=== PATIENT | female | born 2000 | race Caucasian/White ===

== ENCOUNTER 2023-12-29 22:23 | Emergency (ER) | payer MEDICAID, SELFPAY ==
[2023-12-29 22:25] VITALS: BP 124/79; PULSE 110; RESP 15; TEMP 36.5; O2SAT 99; BMI 25.0
[2023-12-29 22:59] LABS: Rapid Strep A Test Negative (Negative)
[2023-12-29] MEDS: lidocaine 2% viscous 15 mL UDC MUCOUS MEM (23:05)
--- NOTE | 2023-12-29 23:07 | W.ED.BURNSMK ---
Documented by User: ANEESH Ramos 12/29/23 23:13 HPI - Burn/Smoke Inhalation General: Chief complaint: Burn/Smoke Inhalation Stated complaint: throat pain Time Seen by Provider: 12/29/23 22:25 Source: patient Mode of arrival: ambulatory Limitations: no limitations History of Present Illness: Patient is a 23-year-old female presents the emergency department complaining of sore throat onset 2 days. Patient reports history of strep throat, states this feels similar. She notes she was hanging around a friend this weekend in [place], and states that she was having similar symptoms and subsequently was tested for strep throat. Patient states that hurts to swallow and she has a decreased appetite due to the pain. She denies fever, cough, chills, nausea/vomiting, or any other symptoms. Unrelated, she notes a burn to her right pinky finger, which she states is a freezer burn. She says that it is less painful, however she wants to know if she could do to treat it. Associated symptoms: Deny chest pain, fever(s), headache(s), nausea, neck pain or vomiting Review of Systems General: Reports: 10 or more systems reviewed and unremarkable except in HPI and below Const: Reports: change in appetite; Denies: fever(s), chills, fatigue, malaise or night sweats ENMT: Reports: throat pain; Denies: ear or mastoid pain, nasal discharge, nasal congestion or sinus pain Card: Denies: chest pain, palpitations or lightheadedness Resp: Denies: dyspnea, productive cough or wheezing GI: Denies: abdominal pain, nausea, vomiting or diarrhea : Denies: flank pain Musc: Denies: neck pain, back pain or joint pain Skin/Breast: Reports: new lesions (Burn to right fifth finger); Denies: rash Neuro: Denies: headache(s) or dizziness Physical Exam Const: COMMON NORMALS: no acute distress, average body habitus, patient oriented x3, no limitations, healthy appearing, alert and well nourished GENERAL APPEARANCE: cooperative and comfortable ORIENTATION/CONSCIOUSNESS: Yes awake HENMT: COMMON NORMALS: normocephalic, atraumatic, external ears normal, EAC's normal, TM's normal bilaterally and Normal external nose present HEAD & SCALP: normocephalic and atraumatic FACE & SINUS: normal facial exam and sinuses nontender NOSE: Normal external nose present, Normal nares present and No nasal polyps present EXTERNAL EAR: Yes external ears normal EXTERNAL AUDITORY CANAL: EAC's normal TYMPANIC MEMBRANE: TM's normal bilaterally MOUTH: Normal oral and palatal mucosa present THROAT: uvula midline and posterior oropharynx abnormal edema, erythema and exudates Eye: COMMON NORMALS: EOMs intact bilaterally and conjunctivae normal CONJUNCTIVA: Yes conjunctivae normal Neck/C-Spine: COMMON NORMALS: full ROM and no lymphadenopathy Resp: COMMON NORMALS: normal respiratory effort, No retractions, No use of accessory muscles and clear to auscultation bilaterally AUSCULTATION: clear to auscultation bilaterally Cardio: COMMON NORMALS: regular rate, regular rhythm, S1 normal heart sound present and S2 normal heart sound present RATE: regular rate RHYTHM: regular rhythm HEART SOUNDS: S1 normal heart sound present and S2 normal heart sound present Extremity: COMMON NORMALS: normal to inspection and full ROM Neuro: COMMON NORMALS: patient oriented x3, moves all extremities, no focal motor deficits and no sensory deficits noted SENSORIUM/ORIENTATION: Yes alert Psych: COMMON NORMALS: mental status grossly normal Skin: NARRATIVE SKIN EXAM: Several second degree partial-thickness blisters noted to the medial aspect of the right pinky. No surrounding erythema or drainage. Course Vital Signs: Vital signs: Vital Signs Temperature 97.7 F 12/29/23 22:25 Pulse Rate 110 H 12/29/23 22:25 Respiratory Rate 15 12/29/23 22:25 Blood Pressure 124/79 12/29/23 22:25 Pulse Oximetry 99 12/29/23 22:25 Oxygen Delivery Me thod Room Air 12/29/23 22:25 MDM - Burn/Smoke Inhalation Medical Decision Making Patient seen and evaluated in the emergency department today for 2 days of sore throat as well as an unrelated burn suffered a few days ago. For her sore throat, she notes exposure to a potential strep throat infection, and notes that her condition feels similar to prior episodes. Examination remarkable for diffuse erythema of the posterior oropharynx with exudates. Rapid strep is negative, however due to the exposure and clinical picture of her posterior oropharynx, I will treat her with amoxicillin empirically. Strep swab will be cultured. I will also give her bacitracin for her allison and instructed her to keep these clean with soap and water, as well as dry. Return precautions given. Patient agrees with plan. School note will be given at the patient's request. Lab Data Laboratory Results Group A Strep Rapid Negative (Negative) 12/29/23 22:31 No radiology studies performed this visit Discharge Plan Discharge Patient Disposition: Home Clinical Impression: Acute streptococcal pharyngitis Burn of finger Qualifiers: Encounter type: initial encounter Laterality: right Burn degree: partial thickness (2nd degree) Qualified Code(s): T23.221A - Burn of second degree of single right finger (nail) except thumb, initial encounter Condition: Stable Prescriptions: New amoxicillin 500 mg tablet 1,000 mg PO BID 10 Days Qty: 40 0RF bacitracin 500 unit/gram ointment 1 applic topical BID Qty: 1022.4 0RF ondansetron 4 mg tablet,disintegrating 4 mg PO TID PRN (Reason: nausea and vomiting) Qty: 60 0RF Discharge Orders: Discharge ED (Routine); Ordered 12/29/23 Ordered By: Luis Eduardo Carvalho Referrals: Pricila Rosales DO [Primary Care Provider] - Discharge Diet: Usual diet Discharge Activity: Increase activity as tolerated Patient Instructions: Strep Throat (ED), Second-Degree Burn (ED) Activity Restrictions/Additional Instructions: Amoxicillin as prescribed. Contagion precautions. Tylenol for any fevers. Plenty fluids. Follow-up with your primary care provider. Return with any new or worsening symptoms. Apply bacitracin to burn as instructed. Clean burn with soap and water, keep dry. Stand Alone Forms: Work/School Release Coding Level of Care Code ED Research Laboratory Manager for [facility] Documented by User: Tariq Daniel DO 12/30/23 05:51 HPI - Burn/Smoke Inhalation General: Chief complaint: Burn/Smoke Inhalation Stated complaint: throat pain Time Seen by Provider: 12/29/23 22:25 Course Vital Signs: Vital signs: Vital Signs Temperature 97.7 F 12/29/23 22:25 Pulse Rate 110 H 12/29/23 22:25 Respiratory Rate 15 12/29/23 22:25 Blood Pressure 124/79 12/29/23 22:25 Pulse Oximetry 99 12/29/23 22:25 Oxygen Delivery Me thod Room Air 12/29/23 22:25 MDM - Burn/Smoke Inhalation Medical Decision Making Patient seen and evaluated in the emergency department today for 2 days of sore throat as well as an unrelated burn suffered a few days ago. For her sore throat, she notes exposure to a potential strep throat infection, and notes that her condition feels similar to prior episodes. Examination remarkable for diffuse erythema of the posterior oropharynx with exudates. Rapid strep is negative, however due to the exposure and clinical picture of her posterior oropharynx, I will treat her with amoxicillin empirically. Strep swab will be cultured. I will also give her bacitracin for her allison and instructed her to keep these clean with soap and water, as well as dry. Return precautions given. Patient agrees with plan. School note will be given at the patient's request. Chart reviewed Lab Data Laboratory Results Group A Strep Rapid Negative (Negative) 12/29/23 22:31 Discharge Plan Discharge Patient Disposition: Home Clinical Impression: Acute streptococcal pharyngitis Burn of finger Qualifiers: Encounter type: initial encounter Laterality: right Burn degree: partial thickness (2nd degree) Qualified Code(s): T23.221A - Burn of second degree of single right finger (nail) except thumb, initial encounter Condition: Stable Prescriptions: New amoxicillin 500 mg tablet 1,000 mg PO BID 10 Days Qty: 40 0RF bacitracin 500 unit/gram ointment 1 applic topical BID Qty: 1022.4 0RF ondansetron 4 mg tablet,disintegrating 4 mg PO TID PRN (Reason: nausea and vomiting) Qty: 60 0RF Discharge Orders: Discharge ED (Routine); Ordered 12/29/23 Ordered By: Luis Eduardo Carvalho Referrals: Pricila Rosales DO [Primary Care Provider] - Discharge Diet: Usual diet Discharge Activity: Increase activity as tolerated Patient Instructions: Strep Throat (ED), Second-Degree Burn (ED) Activity Restrictions/Additional Instructions: Amoxicillin as prescribed. Contagion precautions. Tylenol for any fevers. Plenty fluids. Follow-up with your primary care provider. Return with any new or worsening symptoms. Apply bacitracin to burn as instructed. Clean burn with soap and water, keep dry. Stand Alone Forms: Work/School Release Coding Level of Care Code ED Research Laboratory Manager for [facility]
[2023-12-29] MEDS: amoxicillin 500 mg Capsule PO (23:26)
== END 2023-12-29 23:32 | disposition home or self-care (01) ==
PROVIDERS: Emergency Provider Physician Assistant; PCP Family Medicine
DX: J02.0 Streptococcal pharyngitis (principal); T23.221A Burn of second degree of single right finger (nail) except thumb, initial encounter; X08.8XXA Exposure to other specified smoke, fire and flames, initial encounter
CPT/HCPCS: 87081; 87880; 99283

== ENCOUNTER 2024-01-01 21:58 | Emergency (ER) | payer MEDICAID, SELFPAY ==
[2024-01-01 21:59] VITALS: BP 120/82; PULSE 97; RESP 16; TEMP 36.6; O2SAT 98
--- NOTE | 2024-01-01 23:12 | ED_ITS ---
HPI - Recheck/Abnormal Lab/Rx General: Chief Complaint: Recheck/Abnormal Lab/Rx Stated Complaint: throat hurts tonsils swollen Time Seen by Provider: 01/01/24 22:55 History of Present Illness: 23-year-old female comes in today with p ersistent sore throat. Patient was seen 3 days ago and was diagnosed with strep pharyngitis. Review of the record noted that strep test was negative. Patient was placed on amoxicillin, bacitracin, and Zofran. Patient appears nontoxic. Patient appears in mild to moderate pain. Review of Systems General: Reports: 10 or more systems reviewed and unremarkable except in HPI and below ENMT: Reports: throat pain Physical Exam Const: COMMON NORMALS: alert HENMT: COMMON NORMALS: normocephalic HEAD & SCALP: normocephalic THROAT: posterior oropharynx abnormal erythema Neck/C-Spine: COMMON NORMALS: full ROM Resp: COMMON NORMALS: normal respiratory effort and clear to auscultation bilaterally AUSCULTATION: clear to auscultation bilaterally Cardio: COMMON NORMALS: regular rate RATE: regular rate Back/Pelvis: COMMON NORMALS: thoracic and lumbar spine normal to inspection Extremity: COMMON NORMALS: normal to inspection Neuro: SENSORIUM/ORIENTATION: Yes alert Skin: COMMON NORMALS: turgor normal GENERAL SKIN EXAM: turgor normal Course Vital Signs: Vital signs: Vital Signs Temperature 97.8 F 01/01/24 21:59 Pulse Rate 97 01/01/24 21:59 Respiratory Rate 16 01/01/24 21:59 Blood Pressure 120/82 01/01/24 21:59 Pulse Oximetry 98 01/01/24 21:59 Oxygen Delivery Me thod Room Air 01/01/24 21:59 MDM - Recheck/Abnormal Lab/Rx Medical Decision Making Patient presents with complaints of sore throat. On exam patient has erythema to posterior pharynx with some tonsillar enlargement. Patient also has some vesicular lesions to the posterior pharynx. Differential diagnosis includes strep pharyngitis, viral pharyngitis, HSV. Recommended treatment with viscous lidocaine and a dose of steroid to help with pain and discomfort. Encourage fluids rest and follow-up with primary care. Patient reported understanding agreed to plan. No radiology studies performed this visit Discharge Plan Discharge Patient Disposition: Home Clinical Impression: Pharyngitis due to Coxsackie virus Condition: Stable Prescriptions: New Lidocaine Viscous 2 % solution 5 ml mucous membrane Q3H PRN (Reason: pain) Qty: 100 0RF No Action amoxicillin 500 mg tablet 1,000 mg PO BID 10 Days Qty: 40 0RF bacitracin 500 unit/gram ointment 1 applic topical BID Qty: 1022.4 0RF ondansetron 4 mg tablet,disintegrating 4 mg PO TID PRN (Reason: nausea and vomiting) Qty: 60 0RF Discharge Orders: Discharge ED (Routine); Ordered 01/01/24 Ordered By: Phu Christian Referrals: Pricila Rosales DO [Primary Care Provider] - Patient Instructions: Pharyngitis (ED) Activity Restrictions/Additional Instructions: Drink frequent sips of fluid. Use lidocaine viscous as needed for sore throat. Continue with acetaminophen ibuprofen for further pain relief. Follow-up with primary care in 3 to 4 days for recheck. Return to ER for worsening symptoms such as inability to hold fluids down, fever greater than 100.4, no urine output within 8 hours. Coding Level of Care Code ED [employer] Librarian for [facility]
[2024-01-01] MEDS: dexamethasone 10 mg/mL INJ PO (23:24)
[2024-01-01] MEDS: lidocaine 2% viscous 15 mL UDC 5 ML MUCOUS MEM (23:24)
[2024-01-01 23:30] VITALS: PULSE 91; RESP 16; O2SAT 99
== END 2024-01-01 23:31 | disposition home or self-care (01) ==
PROVIDERS: Emergency Provider Nurse Practitioner Family; PCP Family Medicine
DX: B08.5 Enteroviral vesicular pharyngitis (principal)
CPT/HCPCS: 99283; J1100

== ENCOUNTER 2024-02-28 15:53 | Emergency (ER) | payer MEDICAID, SELFPAY ==
[2024-02-28 16:04] VITALS: BP 117/64; PULSE 103; RESP 17; TEMP 36.7; O2SAT 100; BMI 25.0
--- NOTE | 2024-02-28 16:39 | XRR_ITS ---
PROCEDURE INFORMATION: Exam: XR Chest Exam date and time: 02/28/2024 5:37 PM Age: 24 years old Clinical indication: Patient HX: Extremity numbness; Cardiac R/O TECHNIQUE: Imaging protocol: Radiologic exam of the chest. Views: 1 view. COMPARISON: No relevant prior studies available. FINDINGS: Lungs: Unremarkable. No consolidation. Pleural spaces: Unremarkable. No pleural effusion. No pneumothorax. Heart/Mediastinum: Unremarkable. No cardiomegaly. Bones/joints: Unremarkable. XR/XR chest 1V portable [id number] IMPRESSION: No acute findings.
--- NOTE | 2024-02-28 16:58 | ED_ITS ---
Documented by User: ANEESH Ramos 02/28/24 19:03 HPI - Extremity Problem General: Chief complaint: Extremity Problem,Nontraumatic Stated complaint: legs, feet numbness Time Seen by Provider: 02/28/24 16:31 Source: patient Mode of arrival: ambulatory Limitations: no limitations History of Present Illness: Patient is a 24-year-old female presenting to the emergency department complaining of bilateral ascending numbness of her lower extremities for the past couple weeks. She notes that prior to the symptom onset, she has started taking nitrous oxide. She notes she has continued to do this every day until today when the numbness extended past her knees bilaterally. She is denying any pain at this time though states it is nearly impossible to walk due to the weakness and numbness. She denies any pertinent medical history. She is not reporting any shortness of breath, headaches, nausea or vomiting, fevers, or other symptoms at this time. She notes she does not take medications for anything. Patient's boyfriend in the room states that he read up on nitrous oxide and believes that this is potentially causing her neuropathy. Complaint: other (Bilateral numbness to lower extremities) Onset (ago): week(s) Associated symptoms: Deny chest pain, fever(s) or rash Review of Systems General: Reports: 10 or more systems reviewed and unremarkable except in HPI and below Const: Denies: fever(s), chills or fatigue Eyes: Denies: change in vision ENMT: Denies: throat pain, ear or mastoid pain or nasal discharge Card: Denies: chest pain, palpitations, swelling of feet/ankles or lightheadedness Resp: Denies: dyspnea, productive cough or wheezing GI: Denies: abdominal pain, nausea, vomiting, diarrhea or constipation : Denies: flank pain, difficulty voiding, dysuria or urinary frequency Musc: Denies: neck pain, back pain or joint pain Skin/Breast: Denies: rash Neuro: Reports: numbness in extremities (BLE) and weakness in extremities (BLE); Denies: headache(s) Physical Exam Const: COMMON NORMALS: no acute distress, patient oriented x3 and no limitations GENERAL APPEARANCE: cooperative, comfortable and well developed ORIENTATION/CONSCIOUSNESS: Yes awake, Yes oriented to person, Yes oriented to place and Yes oriented to time HENMT: COMMON NORMALS: normocephalic, atraumatic and hearing grossly normal bilaterally HEAD & SCALP: normocephalic and atraumatic Eye: COMMON NORMALS: Equal, round and reactive pupils present, EOMs intact bilaterally and conjunctivae normal CONJUNCTIVA: Yes conjunctivae normal PUPIL: Yes Equal, round and reactive pupils present Neck/C-Spine: COMMON NORMALS: full ROM, supple and no JVD Resp: COMMON NORMALS: normal respiratory effort, No retractions, No use of accessory muscles and clear to auscultation bilaterally AUSCULTATION: clear to auscultation bilaterally Cardio: COMMON NORMALS: no JVD, regular rate, regular rhythm, No clicks present (Cardio), No murmurs present (Cardio) and No rub (Cardio) RATE: regular rate RHYTHM: regular rhythm Extremity: COMMON NORMALS: normal to inspection, full ROM and capillary refill normal Neuro: COMMON NORMALS: patient oriented x3, CN's II-XII intact bilaterally, moves all extremities, no focal motor deficits and no sensory deficits noted SENSORIUM/ORIENTATION: Yes oriented to person, Yes oriented to place and Yes oriented to time OTHER: Distal sensations intact bilaterally to lower extremities. Deep tendon reflexes also intact with patellar and Achilles manipulation. Able to move both extremities with 5/5 strength. No focal motor deficits. During examination she begins shaking her legs uncontrollably, which stopped spontaneously. Psych: COMMON NORMALS: mental status grossly normal and Normal thought process present THOUGHT PROCESS: Normal thought process present Skin: COMMON NORMALS: no rashes or lesions noted GENERAL SKIN EXAM: no rashes or lesions noted Course Vital Signs: Vital signs: Vital Signs Temperature 98.1 F 02/28/24 19:11 Pulse Rate 103 H 02/28/24 19:11 Respiratory Rate 17 02/28/24 19:11 Blood Pressure 117/64 02/28/24 19:11 Pulse Oximetry 100 02/28/24 19:11 Oxygen Delivery Me thod Room Air 02/28/24 16:04 MDM - Extremity (Nontraumatic) Medical Decision Making Patient left AGAINST MEDICAL ADVICE. Labs not drawn. Lab Data Radiology Impressions Chest X-Ray 02/28/24 16:39 IMPRESSION: No acute findings. Head CT 02/28/24 17:03 IMPRESSION: No acute intracranial abnormality. Laboratory Results Urine Color Yellow (Yellow) 02/28/24 17:25 Urine Appearance Cloudy (CLEAR) A 02/28/24 17:25 Urine pH 7 (5-7) 02/28/24 17:25 Ur Specific [place] 1.010 (1.005-1.030) 02/28/24 17:25 Urine Protein Neg (Negative) 02/28/24 17:25 Urine Glucose (UA) Norm (Normal) 02/28/24 17:25 Urine Ketones Negative (Negative) 02/28/24 17:25 Urine Blood Neg (Negative) 02/28/24 17:25 Urine Nitrate Negative (Negative) 02/28/24 17:25 Urine Bilirubin Neg (Negative) 02/28/24 17:25 Urine Urobilinogen Norm mg/dL (Negative) 02/28/24 17:25 Ur Leukocyte Esterase Negative (Negative) 02/28/24 17:25 Urine RBC None /hpf (0-2) 02/28/24 17:25 Urine WBC None /hpf (0-5) 02/28/24 17:25 Ur Squamous Epith Cells 0-4 /hpf (0-5) H 02/28/24 17:25 Amorphous Sediment 3+ /hpf 02/28/24 17:25 Urine Bacteria Trace /hpf (NONE) 02/28/24 17:25 Urine Opiates Screen Negative ng/mL (Negative) 02/28/24 17:25 Ur Barbiturates Screen Negative ng/mL (Negative) 02/28/24 17:25 Ur Phencyclidine Scrn Negative ng/mL (Negative) 02/28/24 17:25 Ur Amphetamines Screen Negative ng/mL (Negative) 02/28/24 17:25 U Benzodiazepines Scrn Negative ng/mL (Negative) 02/28/24 17:25 Urine Cocaine Screen Negative ng/mL (Negative) 02/28/24 17:25 U Marijuana (THC) Screen Positive ng/mL (Negative) H 02/28/24 17:25 All radiology interpretation(s) finalized by discharge Discharge Plan Discharge Patient Disposition: Left Against Medical Advice Clinical Impression: Left against medical advice Condition: Stable Prescriptions: No Action Lidocaine Viscous 2 % solution 5 ml mucous membrane Q3H PRN (Reason: pain) Qty: 100 0RF bacitracin 500 unit/gram ointment 1 applic topical BID Qty: 1022.4 0RF ondansetron 4 mg tablet,disintegrating 4 mg PO TID PRN (Reason: nausea and vomiting) Qty: 60 0RF Referrals: Pricila Rosales DO [Primary Care Provider] - Coding Level of Care Code ED Software Maintenance Engineer for [facility] Documented by User: Tariq Daniel DO 02/29/24 06:57 HPI - Extremity Problem General: Chief complaint: Extremity Problem,Nontraumatic Stated complaint: legs, feet numbness Time Seen by Provider: 02/28/24 16:31 Course Vital Signs: Vital signs: Vital Signs Temperature 98.1 F 02/28/24 19:11 Pulse Rate 103 H 02/28/24 19:11 Respiratory Rate 17 02/28/24 19:11 Blood Pressure 117/64 02/28/24 19:11 Pulse Oximetry 100 02/28/24 19:11 Oxygen Delivery Me thod Room Air 02/28/24 16:04 MDM - Extremity (Nontraumatic) Medical Decision Making Patient left AGAINST MEDICAL ADVICE. Labs not drawn. Chart reviewed Lab Data Radiology Impressions Chest X-Ray 02/28/24 16:39 IMPRESSION: No acute findings. Head CT 02/28/24 17:03 IMPRESSION: No acute intracranial abnormality. Laboratory Results Urine Color Yellow (Yellow) 02/28/24 17:25 Urine Appearance Cloudy (CLEAR) A 02/28/24 17:25 Urine pH 7 (5-7) 02/28/24 17:25 Ur Specific [place] 1.010 (1.005-1.030) 02/28/24 17:25 Urine Protein Neg (Negative) 02/28/24 17:25 Urine Glucose (UA) Norm (Normal) 02/28/24 17: Urine Ketones Negative (Negative) 02/28/24 17:25 Urine Blood Neg (Negative) 02/28/24 17:25 Urine Nitrate Negative (Negative) 02/28/24 17:25 Urine Bilirubin Neg (Negative) 02/28/24 17:25 Urine Urobilinogen Norm mg/dL (Negative) 02/28/24 17:25 Ur Leukocyte Esterase Negative (Negative) 02/28/24 17:25 Urine RBC None /hpf (0-2) 02/28/24 17:25 Urine WBC None /hpf (0-5) 02/28/24 17:25 Ur Squamous Epith Cells 0-4 /hpf (0-5) H 02/28/24 17:25 Amorphous Sediment 3+ /hpf 02/28/24 17:25 Urine Bacteria Trace /hpf (NONE) 02/28/24 17:25 Urine Opiates Screen Negative ng/mL (Negative) 02/28/24 17:25 Ur Barbiturates Screen Negative ng/mL (Negative) 02/28/24 17:25 Ur Phencyclidine Scrn Negative ng/mL (Negative) 02/28/24 17:25 Ur Amphetamines Screen Negative ng/mL (Negative) 02/28/24 17:25 U Benzodiazepines Scrn Negative ng/mL (Negative) 02/28/24 17:25 Urine Cocaine Screen Negative ng/mL (Negative) 02/28/24 17:25 U Marijuana (THC) Screen Positive ng/mL (Negative) H 02/28/24 17:25 Discharge Plan Discharge Patient Disposition: Left Against Medical Advice Clinical Impression: Left against medical advice Condition: Stable Prescriptions: No Action Lidocaine Viscous 2 % solution 5 ml mucous membrane Q3H PRN (Reason: pain) Qty: 100 0RF bacitracin 500 unit/gram ointment 1 applic topical BID Qty: 1022.4 0RF ondansetron 4 mg tablet,disintegrating 4 mg PO TID PRN (Reason: nausea and vomiting) Qty: 60 0RF Referrals: Pricila Rosales DO [Primary Care Provider] - Coding Level of Care Code ED Software Maintenance Engineer for [facility]
--- NOTE | 2024-02-28 17:03 | CTR_ITS ---
PROCEDURE INFORMATION: Exam: CT Head Without Contrast Exam date and time: 02/28/2024 5:14 PM Age: 24 years old Clinical indication: Altered mental status/memory loss; Confusion or disorientation; Additional info: Nitrous oxide abuse, neurological deficit TECHNIQUE: Imaging protocol: Computed tomography of the head without contrast. Radiation optimization: All CT scans at this facility use at least one of these dose optimization techniques: automated exposure control; mA and/or kV adjustment per patient size (includes targeted exams where dose is matched to clinical indication); or iterative reconstruction. COMPARISON: No relevant prior studies available. RADIATION DOSE METRICS: Total DLP (mGy-cm): 1002.98 FINDINGS: Brain: Normal. No hemorrhage. Unremarkable white matter. No mass effect. Cerebral ventricles: No ventriculomegaly. Paranasal sinuses: Visualized sinuses are unremarkable. No fluid levels. Mastoid air cells: Visualized mastoid air cells are well aerated. Bones: Unremarkable. No acute fracture. Soft tissues: Unremarkable. CT/CT head wo con* [id number] IMPRESSION: No acute intracranial abnormality.
[2024-02-28] MEDS: LORazepam 1 mg Tablet PO (17:35)
[2024-02-28 17:47] LABS: Add Urine Microscopic? YES; Amorphous Sediment Urine 3+ /hpf; Bacteria Urine TRACE /hpf; Bilirubin Urine Neg (Negative); Blood Urine Neg (Negative); Glucose Urine UA Norm (Normal); Ketones Urine Negative (Negative); Leukocyte Esterase Urine Negative (Negative); Nitrate Urine Negative (Negative); Protein Urine Neg (Negative); Squamous Epithelial Cell Urine 0-4 /hpf (0-5); Urine Appearance Cloudy (CLEAR); Urine Color Yellow (Yellow); Urobilinogen Urine Norm (Negative); pH Urine 7 (5-7)
[2024-02-28 17:48] LABS: Add Urine Culture? No
[2024-02-28 17:51] LABS: Amphetamines Screen Urine Negative (Negative); Barbiturates Screen Urine Negative (Negative); Benzodiazepines Screen Urine Negative (Negative); Cocaine Screen Urine Negative (Negative); Opiate Screen Urine Negative (Negative); PCP Screen Urine Negative (Negative); THC Screen Urine Positive (Negative)
[2024-02-28 19:11] VITALS: BP 117/64; PULSE 103; RESP 17; TEMP 36.7; O2SAT 100
== END 2024-02-28 19:12 | disposition left against medical advice (07) ==
PROVIDERS: Emergency Provider Physician Assistant; PCP Family Medicine
DX: R20.0 Anesthesia of skin (principal)
CPT/HCPCS: 70450; 71045; 80306; 81001; 99285

== ENCOUNTER 2024-03-01 17:27 | Emergency (ER) | payer MEDICAID, SELFPAY ==
[2024-03-01 17:31] VITALS: BP 126/66; PULSE 121; RESP 16; TEMP 36.4; O2SAT 99
--- NOTE | 2024-03-01 20:03 | CTR_ITS ---
PROCEDURE INFORMATION: Exam: CT Head Without Contrast Exam date and time: 03/01/2024 8:21 PM Age: 24 years old Clinical indication: Altered mental status/memory loss; Additional info: Delusions, neuropathy, hallucinations TECHNIQUE: Imaging protocol: Computed tomography of the head without contrast. Axial, coronal and sagittal reformatted images were created and reviewed. Radiation optimization: All CT scans at this facility use at least one of these dose optimization techniques: automated exposure control; mA and/or kV adjustment per patient size (includes targeted exams where dose is matched to clinical indication); or iterative reconstruction. COMPARISON: CT head wo con* [id number] 02/28/2024 5:14 PM RADIATION DOSE METRICS: Total DLP (mGy-cm): 977 FINDINGS: Brain: No CT evidence of acute intracranial hemorrhage or acute territorial infarction. No significant mass effect or midline shift. Basal cisterns patent. Cerebral ventricles: Normal in size and configuration. Paranasal sinuses: Unremarkable. No fluid levels. Mastoid air cells: Grossly unremarkable. Bones: Unremarkable. No acute fracture. Soft tissues: Grossly unremarkable. CT/CT head wo con* [id number] IMPRESSION: No CT evidence of acute intracranial pathology.
--- NOTE | 2024-03-01 20:05 | ED_ITS ---
HPI - Neuro Symptoms/Deficit 2 General: Chief Complaint: Neuro Symptoms/Deficit Stated Complaint: unable to walk Time Seen by Provider: 03/01/24 19:45 History of Present Illness: Patient presents to the ER with complaints of loss of feeling in her legs from mid thigh down, memory problems, vision issues, hallucinations and delusional thoughts. Patient was seen in this ER yesterday but refused labs and left AMA. Patient did did admit to heavy use of whippets here recently. Patient also stated she had a similar episode back about 2 years ago where she lost ability to walk secondary to heavy whippets usage and had to relearn how to walk and then it started again and then she discontinued using them altogether and all of her symptoms only. Patient is not on any medicine, denies any allergies, has no big hospitalizations or surgeries. Review of Systems 2 General: Reports: 10 or more systems reviewed and unremarkable except in HPI and below Physical Exam 2 Const: COMMON NORMALS: no acute distress, average body habitus, patient oriented x3, no limitations, healthy appearing, alert and well nourished HENMT: COMMON NORMALS: normocephalic, atraumatic, hearing grossly normal bilaterally, external ears normal, Normal external nose present, moist oral mucous membranes and oropharynx normal HEAD & SCALP: normocephalic and atraumatic NOSE: Normal external nose present EXTERNAL EAR: Yes external ears normal Eye: COMMON NORMALS: Equal, round and reactive pupils present, EOMs intact bilaterally, conjunctivae normal and no scleral icterus CONJUNCTIVA: Yes conjunctivae normal PUPIL: Yes Equal, round and reactive pupils present Neck/C-Spine: COMMON NORMALS: full ROM, no lymphadenopathy, supple, no meningeal signs, no JVD and Thyroid normal THYROID: Thyroid normal Chest: COMMONS NORMALS: normal inspection of the chest and normal palpation of entire chest wall Resp: COMMON NORMALS: normal respiratory effort, No retractions, No use of accessory muscles and clear to auscultation bilaterally AUSCULTATION: clear to auscultation bilaterally Cardio: COMMON NORMALS: no JVD, regular rate, regular rhythm, S1 normal heart sound present, S2 normal heart sound present, No gallops present (Cardio), No clicks present (Cardio), No murmurs present (Cardio) and No rub (Cardio) R ATE: regular rate RHYTHM: regular rhythm HEART SOUNDS: S1 normal heart sound present and S2 normal heart sound present GI: COMMON NORMALS: Normal to inspection, nondistended, normoactive bowel sounds present, Soft to palpation, non-tender, No hepatosplenomegaly present and no masses PALPATION: Yes Soft to palpation and Yes No hepatosplenomegaly present Extremity: NARRATIVE EXTREMITY EXAM: Decree sensation bilateral lower extremities and no definitive nerve root pattern, patient says decree sensation from the mid thigh down equally on both legs anterior posterior lateral and medial surfaces Neuro: COMMON NORMALS: patient oriented x3 SENSORIUM/ORIENTATION: Yes alert MENINGEAL SIGNS: Yes no meningeal signs Course 2 Vital Signs: Vital signs: Vital Signs Temperature 97.6 F 03/01/24 17:31 Pulse Rate 92 03/01/24 21:16 Respiratory Rate 16 03/01/24 21:16 Blood Pressure 113/76 03/01/24 21:16 Pulse Oximetry 100 03/01/24 21:16 MDM - Neuro Symptoms/Deficit Medical Decision Making Upon review of all lab work when discussed with the patient patient is up in her bed sitting eating pizza. Patient then asked for pain medicine to go home on. Lab work was obtained which was essentially remarked unremarkable. CBC CMP CRP ESR urine urine drug screen, TSH was very slightly high 4.21, urine drug screen, positive for marijuana, head CT was negative, patient complained of pain and did ask for pain medicine. Patient be given 1 tramadol here and a prescription to go home on for 5 tramadol. Patient should follow-up with her PCP within next week for further evaluation and treatment. Lab Data I reviewed the patient's lab results. 03/01/24 20:40 03/01/24 20:[address] 03/01/24 20:03 IMPRESSION: No CT evidence of acute intracranial pathology. Laboratory Results WBC 10.55 10^3/uL (3.29-11.43) 03/01/24 20:40 RBC 3.92 10^6/uL (3.85-5.65) 03/01/24 20:40 Hgb 13.40 g/dL (11.27-16.99) 03/01/24 20:40 Hct 39.0 % (36-47) 03/01/24 20:40 MCV 99.5 fl (85-98) H 03/01/24 20:40 MCH 34.2 pg (27-33) H 03/01/24 20:40 MCHC 34.4 g/dL (30-55) 03/01/24 20:40 RDW 16.5 % (12.1-15.1) H 03/01/24 20:40 Plt Count 284 10^3/cmm (157-399) 03/01/24 20:40 MPV 8.4 fL (7.4-10.4) 03/01/24 20:40 Neut % (Auto) 57.1 % 03/01/24 20:40 Lymph % (Auto) 28.6 % 03/01/24 20:40 [place] % (Auto) 10.4 % 03/01/24 20:40 Eos % (Auto) 2.2 % 03/01/24 20:40 Baso % (Auto) 0.4 % 03/01/24 20:40 Neut # (Auto) 6.02 10^3/uL (1.8-7.7) 03/01/24 20:40 Lymph # (Auto) 3.0 10^3/uL (0.8-4.8) 03/01/24 20:40 [place] # (Auto) 1.1 10^3/uL (0.2-0.9) H 03/01/24 20:40 Eos # (Auto) 0.2 10^3/uL (0.0-0.8) 03/01/24 20:40 Baso # (Auto) 0.0 10^3/uL (0.0-0.1) 03/01/24 20:40 Nucleated RBC % (auto) 0 % 03/01/24 20:40 Nucleated RBCs # 0.0 /100WBC 03/01/24 20:40 ESR 4 mm/hr (0-15) 03/01/24 20:40 Sodium 140 mmol/L (136-145) 03/01/24 20:40 Potassium 4.7 mmol/L (3.5-5.1) 03/01/24 20:40 Chloride 106 mmol/L (98-107) 03/01/24 20:40 Carbon Dioxide 18 mmol/L (22-29) L 03/01/24 20:40 Anion Gap 20.7 (5-19) H 03/01/24 20:40 BUN 14 mg/dL (6-20) 03/01/24 20:40 Creatinine 0.7 mg/dL (0.5-0.9) 03/01/24 20:40 GFR Calculation 104.6 mL/min (90-130) 03/01/24 20:40 Glucose 91 mg/dL (65-115) 03/01/24 20:40 Calculated Osmolality 290 mOsm/kg (285-295) 03/01/24 20:40 Calcium 8.8 mg/dL (8.5-10.5) 03/01/24 20:40 Magnesium 2.2 mg/dL (1.7-2.3) 03/01/24 20:40 Total Bilirubin 0.7 mg/dL (0.15-1.2) 03/01/24 20:40 AST 22 U/L (0-32) 03/01/24 20:40 ALT 24 U/L (0-33) 03/01/24 20:40 Alkaline Phosphatase 55 U/L (35-105) 03/01/24 20:40 C-Reactive Protein 3.0 mg/L (0.0-4.9) 03/01/24 20:40 Total Protein 7.5 g/dL (6.6-8.7) 03/01/24 20:40 Albumin 4.5 g/dL (3.5-5.2) 03/01/24 20:40 Globulin 3.0 g/dL (1.3-4.6) 03/01/24 20:40 TSH 4.21 uIU/mL (0.27-4.20) H 03/01/24 20:40 HCG, Qual Negative (Negative) 03/01/24 20:11 Urine Color Yellow (Yellow) 03/01/24 20:11 Urine Appearance Clear (CLEAR) 03/01/24 20:11 Urine pH 6 (5-7) 03/01/24 20:11 Ur Specific [place] 1.020 (1.005-1.030) 03/01/24 20: Urine Protein Neg (Negative) 03/01/24 20: Urine Glucose (UA) Norm (Normal) 03/01/24 20:11 Urine Ketones 1+ (Negative) H 03/01/24 20: Urine Blood Neg (Negative) 03/01/24 20: Urine Nitrate Negative (Negative) 03/01/24 20:11 Urine Bilirubin Neg (Negative) 03/01/24 20:11 Urine Urobilinogen Norm mg/dL (Negative) 03/01/24 20:11 Ur Leukocyte Esterase Negative (Negative) 03/01/24 20:11 Urine Opiates Screen Negative ng/mL (Negative) 03/01/24 20:11 Ur Barbiturates Screen Negative ng/mL (Negative) 03/01/24 20:11 Ur Phencyclidine Scrn Negative ng/mL (Negative) 03/01/24 20:11 Ur Amphetamines Screen Negative ng/mL (Negative) 03/01/24 20:11 U Benzodiazepines Scrn Negative ng/mL (Negative) 03/01/24 20:11 Urine Cocaine Screen Negative ng/mL (Negative) 03/01/24 20:11 U Marijuana (THC) Screen Positive ng/mL (Negative) H 03/01/24 20:11 All radiology interpretation(s) finalized by discharge Discharge Plan Discharge Patient Disposition: Home Clinical Impression: Peripheral neuropathy Condition: Stable Prescriptions: New tramadol 50 mg tablet 50 mg PO TID PRN (Reason: pain) Qty: 7 0RF No Action Lidocaine Viscous 2 % solution 5 ml mucous membrane Q3H PRN (Reason: pain) Qty: 100 0RF bacitracin 500 unit/gram ointment 1 applic topical BID Qty: 1022.4 0RF ondansetron 4 mg tablet,disintegrating 4 mg PO TID PRN (Reason: nausea and vomiting) Qty: 60 0RF Discharge Orders: Discharge ED (Routine); Ordered 03/01/24 Ordered By: Mark Pugh Referrals: Pricila Rosales DO [Primary Care Provider] - Patient Instructions: Peripheral Neuropathy (ED) Activity Restrictions/Additional Instructions: Your lab work was unremarkable and did not show any acute cause of your pain numbness and tingling. Please follow-up with your family practice physician for further evaluation testing as needed. Coding Level of Care Code ED Topographical Drafter for Chelsea Rosenberg
[2024-03-01 20:06] VITALS: BP 121/82; PULSE 98; RESP 18; O2SAT 98
[2024-03-01 20:29] LABS: Add Urine Microscopic? NO; Charge for UA Resulting for Rev
[2024-03-01 20:30] LABS: Bilirubin Urine Neg (Negative); Blood Urine Neg (Negative); Glucose Urine UA Norm (Normal); HCG Qualitative Urine. Negative (Negative); Ketones Urine 1+ (Negative); Leukocyte Esterase Urine Negative (Negative); Nitrate Urine Negative (Negative); Protein Urine Neg (Negative); Urine Appearance Clear (CLEAR); Urine Color Yellow (Yellow); Urobilinogen Urine Norm (Negative); pH Urine 6 (5-7)
[2024-03-01 20:39] LABS: Amphetamines Screen Urine Negative (Negative); Barbiturates Screen Urine Negative (Negative); Benzodiazepines Screen Urine Negative (Negative); Cocaine Screen Urine Negative (Negative); Opiate Screen Urine Negative (Negative); PCP Screen Urine Negative (Negative); THC Screen Urine Positive (Negative)
[2024-03-01 20:46] LABS: Basophils % 0.4 %; Eosinophils # 0.2 10^3/uL (0.0-0.8); Eosinophils % 2.2 %; Lymphocytes % 28.6 %; Mean Corpuscular HGB Conc 34.4 g/dL (30-55); Mean Corpuscular Hemoglobin 34.2 pg (27-33); Mean Corpuscular Volume 99.5 fl (85-98); Mean Platelet Volume 8.4 fL (7.4-10.4); Monocytes # 1.1 10^3/uL (0.2-0.9); Monocytes % 10.4 %; Neutrophils # 6.02 10^3/uL (1.8-7.7); Neutrophils % 57.1 %; Nucleated Red Blood Cells % 0 %; Platelet Count 284 10^3/cmm (157-399); Red Blood Count 3.92 10^6/uL (3.85-5.65); Red Cell Distribution Width 16.5 % (12.1-15.1); White Blood Count 10.55 10^3/uL (3.29-11.43)
[2024-03-01 20:49] LABS: Erythrocyte Sedimentation Rate 4 mm/hr (0-15)
[2024-03-01] MEDS: LORazepam 1 mg Tablet PO (21:04)
--- NOTE | 2024-03-01 21:06 | PC.NURSE ---
PT STATES SHE HAS A NITROUS ADDICTION THAT STARTED WITH NUMBNESS AND TINGLING WITH PARALYSIS. PT STATES SHE STARTED ABOUT 2 YEARS AGO AND QUIT BUT RELAPSED
[2024-03-01 21:13] LABS: Alanine Aminotransferase 24 U/L (0-33); Albumin Level 4.5 g/dL (3.5-5.2); Alkaline Phosphatase 55 U/L (35-105); Blood Urea Nitrogen 14 mg/dL (6-20); Calcium 8.8 mg/dL (8.5-10.5); Carbon Dioxide 18 mmol/L (22-29); Chloride 106 mmol/L (98-107); Creatinine Clr Calc Pharmacy 122.2219; Glomerular Filtration Rate 104.6 mL/min (90-130); Glucose 91 mg/dL (65-115); Magnesium 2.2 mg/dL (1.7-2.3); Osmolality Calculated 290 mOsm/kg (285-295); Sodium 140 mmol/L (136-145); Thyroid Stimulating Hormone 4.21 uIU/mL (0.27-4.20); Total Bilirubin 0.7 mg/dL (0.15-1.2); Total Protein 7.5 g/dL (6.6-8.7)
[2024-03-01 21:15] LABS: Anion Gap 20.7 (5-19); Aspartate Amino Transferase 22 U/L (0-32); Potassium 4.7 mmol/L (3.5-5.1)
[2024-03-01 21:16] VITALS: BP 113/76; PULSE 92; RESP 16; O2SAT 100
[2024-03-01 22:00] VITALS: BP 123/73; PULSE 104; RESP 18; O2SAT 100
[2024-03-01 22:48] VITALS: BP 109/76; PULSE 104; RESP 16; O2SAT 97
[2024-03-01] MEDS: TRAMadol 50 mg Tablet PO (23:07)
[2024-03-01 23:23] VITALS: BP 117/74; PULSE 109; RESP 16; O2SAT 98
== END 2024-03-01 23:24 | disposition home or self-care (01) ==
PROVIDERS: Emergency Provider Emergency Medicine; PCP Family Medicine
DX: G62.9 Polyneuropathy, unspecified (principal)
CPT/HCPCS: 70450; 80053; 80306; 81003; 81025; 83735; 84443; 85025; 85651; 86140; 99284

== ENCOUNTER 2024-04-06 13:30 | Outpatient (CLI) | payer MEDICAID, SELFPAY ==
--- NOTE | 2024-04-06 13:39 | MR_ITS ---
WS: [id number] MRI HEAD WITHOUT CONTRAST TECHNIQUE: Sagittal T1, T2 axial, T2 axial FLAIR, axial and coronal T1 images, axial susceptibility w eighted imaging, axial diffusion weighted images, and coronal T2 images were obtained. CLINICAL INFORMATION: PARALYSIS,PROGRESSIVE COMPARISON: None. FINDINGS: No evidence of restricted diffusion to suggest acute ischemia. Ventricular system and basilar cistern s are patent. Normal posterior fossa. Normal vascular flow voids at the skull base. No extra-axial fl uid collections. No evidence of mass or mass effect. Paranasal sinuses are well aerated. Mastoid air cells are well aerated. Normal posterior nasopharynx. No hemosiderin on the susceptibility weighted images. No suspicious intracranial signal abnormalities . Normal cobb-white differentiation. No hydrocephalus. Normal optic chiasm and pituitary infundibulum . Temporal lobes and hippocampal formations are normal in appearance. Visualized proximal 7th and 8th cranial nerves appear normal. No other suspicious findings. MR/MR head wo con* [id number] IMPRESSION: 1. No evidence of restricted diffusion to suggest acute ischemia. 2. Normal cobb-white differentiation. No suspicious intracranial signal abnorm alities. 3. No hemosiderin on susceptibility-weighted images. 4. Normal optic chiasm and pituitary infundibulum. 5. No other suspicious findings.
--- NOTE | 2024-04-06 13:39 | MR_ITS ---
WS: [id number] MRI LUMBAR SPINE NONCONTRAST TECHNIQUE: Sagittal T1, T2 and STIR imaging. Axial T1 and T2 imaging. Patient declined contrast. Will return if necessary. CLINICAL INFORMATION: PARALYSIS,PROGRESSIVE COMPARISON: None. FINDINGS: Mild lumbar curve. No acute compression. No high-grade central canal stenosis. L1-L2: Normal. L2-L3: Normal L3-L4: Mild facet arthropathy. Spinal canal and foramen are patent. L4-L5: Mild annular bulging. Mild facet arthropathy. Spinal canal and foramen are patent. L5-S1: Mild annular bulging. Mild facet arthropathy. Spinal canal and foramen are patent. Visualized pelvic bony structures: Normal. Paravertebral soft tissues: Normal. MR/MR lumbar spine wo con* [id number] IMPRESSION: 1. Mild lumbar curve. No acute compression. 2. Mild facet arthropathy L4-L5 and L5-S1. 3. Mild annular bulging L4-5 and L5-S1 with slight effacement of the ventral t hecal sac. No significant central canal stenosis. 4. No other acute findings
== END 2024-04-06 13:31 | disposition home or self-care (01) ==
LOC: RAD 13:32
PROVIDERS: PCP Family Medicine; Visit Provider Internal Medicine
DX: G12.21 Amyotrophic lateral sclerosis (principal)
CPT/HCPCS: 70551; 72148